=== PATIENT | male | born 1995 | race Caucasian/White ===

== ENCOUNTER 2022-06-04 15:39 | Emergency (ER) | payer OTHER, MEDICAID ==
[~2022-06-04] VITALS: Ht 172.7 cm; Wt 82.7 kg
[2022-06-04 16:27] VITALS: BP 111/77
[2022-06-04] MEDS ORDERED: BACI1PAC6 TP (19:19)
[2022-06-04] MEDS ORDERED: CYCL-711 PO (19:19)
[2022-06-04] MEDS ORDERED: IBUP-2213 PO (19:19)
[2022-06-04] MEDS ORDERED: IBUPROFEN 600 MG TAB PO ONE (19:30)
[2022-06-04 19:42] VITALS: BP 111/77
--- NOTE | 2022-06-04 19:44 | NUR ---
Patient discharged with v/s stable. Written and verbal after care instructions given and explained. Patient alert, oriented and verbalized understanding of instructions. Ambulatory with steady gait. All questions addressed prior to discharge. ID band removed. Patient advised to follow up with PMD. Rx of IBUPROFEN, FLEXERIL, AND BACITRACIN. given. Patient educated on indication of medication including possible reaction and side effects. Opportunity to ask questions provided and answered.
== END 2022-06-04 19:44 | disposition home or self-care (01) ==
LOC: MED 15:39
DX: M79.641 Pain in right hand (principal); M79.672 Pain in left foot; R51.9 Headache, unspecified; V49.88XA Car occupant (driver) (passenger) injured in other specified transport accidents, initial encounter; Y93.89 Activity, other specified; Y92.89 Other specified places as the place of occurrence of the external cause; Y99.8 Other external cause status
CPT/HCPCS: 99283

== ENCOUNTER 2022-07-05 08:01 | Emergency (ER) | payer OTHER, MEDICAID ==
[~2022-07-05] VITALS: Ht 172.7 cm; Wt 83.9 kg
[~2022-07-05 08:01] MED LIST: BACI1PAC6 TP; CYCL-711 PO; IBUP-2213 PO
[2022-07-05 08:10] VITALS: BP 125/59
--- NOTE | 2022-07-05 08:13 | NUR ---
Pt ambulated to bed 04.
--- NOTE | 2022-07-05 08:22 | NUR ---
Dr. Rausch evaluating patient at bedside.
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
--- NOTE | 2022-07-05 08:50 | NUR ---
Radiology at bedside.
[2022-07-05 10:26] VITALS: BP 106/67
--- NOTE | 2022-07-05 10:26 | NUR ---
Patient discharged with v/s stable. Written and verbal after care instructions given. Patient verbalized understanding. Ambulatory with steady gait. All questions addressed prior to discharge. Advised to follow up with PMD.
--- NOTE | 2022-07-05 10:27 | NUR ---
The patient's care was reviewed and supervised by Nidia Lobo RN.
== END 2022-07-05 10:26 | disposition home or self-care (01) ==
LOC: MED 08:01
DX: M79.671 Pain in right foot (principal); Z79.899 Other long term (current) drug therapy; V89.2XXA Person injured in unspecified motor-vehicle accident, traffic, initial encounter; Y93.89 Activity, other specified; Y92.89 Other specified places as the place of occurrence of the external cause; Y99.8 Other external cause status
CPT/HCPCS: 73630; 99283; Q0092